=== PATIENT | male | born 1985 | race African-American/Black ===

== ENCOUNTER 2017-08-07 15:08 | Emergency (ER) | payer OTHER ==
[~2017-08-07] VITALS: Ht 172.7 cm; Wt 99.8 kg
[~2017-08-07 15:08] MED LIST: ASPIRIN325 PO; ATORVASTATIN CA40 MG PO; CEFADROXIL 500500 M1 PO; DOXYCYCLINE 10100 MG PO; IMDUR 30 MG TAB30 M1 PO; LORTAB 5-325 M1 EACH PO; METOPROLOL SUCC25 M1 PO; NORCO 5-325 TA1 EACH PO; PERCOCET 7.5-31 EACH PO; [UNRECOGNIZED DRUG - OTHER]
[2017-08-07] MEDS ORDERED: ZYRTEC10 MG PO (15:47)
[2017-08-07] MEDS ORDERED: FLONASE 0.05%50 MCG NASAL (15:47)
[2017-08-07] MEDS ORDERED: NORCO 5-325 TA1 EACH PO (15:47)
[2017-08-07 16:34] VITALS: BP 121/78
== END 2017-08-07 17:13 | disposition home or self-care (01) ==
LOC: ER 15:08
DX: R51 Headache (principal); J06.9 Acute upper respiratory infection, unspecified; J32.9 Chronic sinusitis, unspecified; M54.9 Dorsalgia, unspecified; F17.210 Nicotine dependence, cigarettes, uncomplicated

== ENCOUNTER 2018-04-23 17:21 | Emergency (ER) | payer OTHER ==
[~2018-04-23] VITALS: Ht 180.3 cm; Wt 104.3 kg
[~2018-04-23 17:21] MED LIST changes: +FLONASE 0.05%50 MCG NASAL; +ZYRTEC10 MG PO
[2018-04-23] MEDS ORDERED: LISINOPRIL5 MG PO (17:31)
[2018-04-23] MEDS ORDERED: COUMADIN 1MG TAB1 M1 PO (17:32)
[2018-04-23] MEDS ORDERED: WARFARIN SODIUM6 MG PO (17:32)
[2018-04-23] MEDS ORDERED: DOXYCYCLINE 10100 MG PO (18:00)
[2018-04-23 19:12] VITALS: BP 120/72
== END 2018-04-23 19:12 | disposition home or self-care (01) ==
LOC: ER 17:21
DX: L02.411 Cutaneous abscess of right axilla (principal); F17.210 Nicotine dependence, cigarettes, uncomplicated

== ENCOUNTER 2018-09-24 11:00 | Emergency (ER) | payer BC, OTHER ==
[~2018-09-24] VITALS: Ht 180.3 cm; Wt 104.3 kg
[~2018-09-24 11:00] MED LIST changes: +COUMADIN 1MG TAB1 M1 PO; +LISINOPRIL5 MG PO; +WARFARIN SODIUM6 MG PO
[2018-09-24 13:37] LABS: ABSOLUTE NEUTROPHILS 4.1 thou/uL (1.4-8.2); BASOPHILS 0.6 % (0.0-2.0); EOSINOPHILS 2.2 % (0.0-3.0); HEMATOCRIT 41.1 % (42.0-52.0); HEMOGLOBIN 14.2 gm/dL (14.0-18.0); LYMPHOCYTES 26.8 % (24.0-44.0); MCHC 34.5 g/dL (28.0-37.0); MCV 86.9 fL (80.0-100.0); MONOCYTES 8.2 % (1.0-8.0); PLATELET COUNT 217 thou/uL (150-400); POLYS 62.2 % (36.0-66.0); RBC 4.72 mil/uL (4.50-6.00); RDW 12.6 % (10.5-14.5); WBC 6.6 thou/uL (4.0-11.0)
[2018-09-24 13:45] LABS: CALCIUM 8.9 mg/dL (8.5-10.1); CREATININE 0.9 mg/dL (0.7-1.3); POTASSIUM 4.1 mmol/L (3.5-5.1)
[2018-09-24 13:57] LABS: APTT 31.9 Seconds (24.5-32.8); INR 1.3
[2018-09-24 15:30] VITALS: BP 130/82
[2018-09-24] MEDS ORDERED: DOXYCYCLINE 10100 MG PO (16:36)
[2018-09-24] MEDS ORDERED: ULTRAM 50MG TAB50 MG PO (16:39)
== END 2018-09-24 18:30 | disposition home or self-care (01) ==
LOC: ER 11:00
PROVIDERS: Nurse Practitioner
DX: L02.811 Cutaneous abscess of head [any part, except face] (principal); F17.210 Nicotine dependence, cigarettes, uncomplicated; Z95.5 Presence of coronary angioplasty implant and graft; Z90.79 Acquired absence of other genital organ(s)

== ENCOUNTER 2018-11-16 18:56 | Emergency (ER) | payer BC, OTHER ==
[~2018-11-16] VITALS: Ht 177.8 cm; Wt 113.4 kg
[~2018-11-16 18:56] MED LIST changes: +ULTRAM 50MG TAB50 MG PO
[2018-11-16] MEDS ORDERED: ASPIR 8181 MG PO (19:00)
[2018-11-16] MEDS ORDERED: COUMADIN 1MG TAB1 M1 PO (19:00)
[2018-11-16] MEDS ORDERED: NAPROSYN500 MG PO (20:32)
[2018-11-16] MEDS ORDERED: NORFLEX100 MG PO (20:32)
[2018-11-16 20:41] VITALS: BP 126/88
== END 2018-11-16 20:41 | disposition home or self-care (01) ==
LOC: ER 18:56
DX: S39.012A Strain of muscle, fascia and tendon of lower back, initial encounter (principal); F17.210 Nicotine dependence, cigarettes, uncomplicated; Z95.5 Presence of coronary angioplasty implant and graft; X50.9XXA Other and unspecified overexertion or strenuous movements or postures, initial encounter; Y93.89 Activity, other specified; Y92.89 Other specified places as the place of occurrence of the external cause; Y99.8 Other external cause status

== ENCOUNTER 2019-02-25 20:36 | Emergency (ER) | payer BC, OTHER ==
[~2019-02-25] VITALS: Ht 175.3 cm; Wt 104.3 kg
[~2019-02-25 20:36] MED LIST changes: +ASPIR 8181 MG PO; +NAPROSYN500 MG PO; +NORFLEX100 MG PO
[2019-02-25 21:33] VITALS: BP 149/89
[2019-02-25] MEDS ORDERED: CLOPIDOGREL75 MG PO ×2 (21:41→22:01)
[2019-02-25] MEDS ORDERED: AFRIN30 ML NASAL (21:46)
[2019-02-25] MEDS ORDERED: TESSALON PERLE100 MG PO (21:46)
[2019-02-25] MEDS ORDERED: PREDNISONE 20 M20 MG PO (21:46)
[2019-02-25] MEDS ORDERED: METOPROLOL SUCC25 M1 PO (22:01)
[2019-02-25] MEDS ORDERED: LISINOPRIL5 MG PO (22:01)
== END 2019-02-25 22:20 | disposition home or self-care (01) ==
LOC: ER 20:36
DX: J06.9 Acute upper respiratory infection, unspecified (principal); F17.210 Nicotine dependence, cigarettes, uncomplicated; Z95.5 Presence of coronary angioplasty implant and graft

== ENCOUNTER 2019-12-17 16:49 | Emergency (ER) | payer OTHER ==
[~2019-12-17] VITALS: Ht 177.8 cm; Wt 104.3 kg
[~2019-12-17 16:49] MED LIST changes: +AFRIN30 ML NASAL; +CLOPIDOGREL75 MG PO; +PREDNISONE 20 M20 MG PO; +TESSALON PERLE100 MG PO
[2019-12-17 16:52] VITALS: BP 124/79
[2019-12-17] MEDS ORDERED: DOXYCYCLINE 10100 M2 PO (17:13)
== END 2019-12-17 17:34 | disposition home or self-care (01) ==
LOC: ER 16:49
DX: L73.8 Other specified follicular disorders (principal); L02.411 Cutaneous abscess of right axilla; L02.01 Cutaneous abscess of face; F17.210 Nicotine dependence, cigarettes, uncomplicated; Z79.82 Long term (current) use of aspirin; Z79.01 Long term (current) use of anticoagulants

== ENCOUNTER 2020-07-30 16:23 | Emergency (ER) | payer OTHER ==
[~2020-07-30] VITALS: Ht 180.3 cm; Wt 104.3 kg
[~2020-07-30 16:23] MED LIST changes: +DOXYCYCLINE 10100 M2 PO
[2020-07-30 16:31] VITALS: BP 141/87
[2020-07-30] MEDS ORDERED: NORCO 10-325 T1 EACH PO (17:10)
[2020-07-30] MEDS ORDERED: DOXYCYCLINE 10100 MG PO (17:10)
[2020-07-30] MEDS ORDERED: HIBICLENS118 ML TOP (17:10)
== END 2020-07-30 17:17 | disposition home or self-care (01) ==
LOC: ER 16:23
DX: L02.411 Cutaneous abscess of right axilla (principal); L73.2 Hidradenitis suppurativa; F17.210 Nicotine dependence, cigarettes, uncomplicated; Z79.899 Other long term (current) drug therapy; Z79.82 Long term (current) use of aspirin